=== PATIENT | male | born 1980 | race Caucasian/White ===

== ENCOUNTER 2024-11-27 15:15 | Emergency (ER) | payer SELFPAY ==
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
--- NOTE | 2024-11-27 15:52 | EDPHYS ---
Physician Documentation [facility] Name: Jose Eduardo Wan Age: 39 yrs Sex: Male : 01/10/1985 Arrival Date: 11/27/2024 Time: 15:15 Bed 15 Private MD: ED Physician Casimiro Hinojosa HPI: 11/27 15:54 This 39 yrs old Male presents to ER via Wheelchair with complaints of Leg ec2 Injury. 15:54 Patient arrives today for postoperative wound evaluation. States that several months ec2 ago he had significant reconstruction to the left lower extremity including grafts and instrumentation. States that today he had a wound and placed subsequently noted material protruding from it. Denies any fevers or chills, nausea or vomiting. States he has a baseline drainage which is unchanged for him. Denies any new pains or injuries or concerns with left lower extremity.. Historical: - Allergies: 15:36 Bees; cm10 - PMHx: 15:36 Hypertensive disorder; cm10 - PSHx: 15:36 Left Leg; cm10 - Immunization history:: Adult Immunizations up to date. - Infectious Disease History:: Denies. - Social history:: Smoking status: unknown. ROS: 15:55 Constitutional: as per hpi ec2 Exam: 15:55 Constitutional: GEN: NAD Head: atraumatic Eyes: EOMI Ears: External ears are ec2 normal. CV: regular rate LUNGS: no respiratory distress ABD: non-distended SKIN: Left lower extremity with small wound with penetrating foreign material noted,. Appears like suture material Vital Signs: 15:34 BP 147 / 76; Pulse 96; Resp 15; Temp 98; Pulse Ox 96% ; Weight 172.37 kg; Height 5 ft. cm10 9 in. ; Pain 6/10; 16:11 BP 147 / 61; Pulse 88; Resp 15; Pulse Ox 96% ; cm10 15:34 Body Mass Index 56.12 (172.37 kg, 175.26 cm) cm10 15:34 Pain Scale: Adult cm10 MDM: 15:25 Medical Screening Exam initiated ec2 15:55 Data reviewed: vital signs, nurses notes. ED course: Patient arrives today for ec2 evaluation of left lower extremity issues. Examination yields skin findings as above. Suspect wound dehiscence with protruding stitch, instructed patient he needs to return to [place] to have his wound reevaluated, patient without infectious appearing wounds, no erythema, no warmth, good range of motion, no evidence of cellulitis, osteomyelitis or abscess formation. Will discharge home, parents started on Bactrim given the instrumentation. Additionally considered osteomyelitis.. 11/27 15:54 Order name: Wound Care; Complete Time: 15:56 ec2 Administered Medications: 16:09 Drug: Trimethoprim-Sulfamethoxazole PO (160 mg-800 mg (DS) 1 tablet PO once Route: PO; 10 16:09 Follow up: Response: Medication administered at discharge. 10 Disposition Summary: 11/27/24 15:51 Discharge Ordered Condition: Stable ec2 Diagnosis - Post Operative Complication ec2 Followup: ec2 - With: Private Physician - When: - Reason: Re-evaluation by your physician Discharge Instructions: - Discharge Summary Sheet ec2 - Wound Dehiscence, [id number] ec2 Forms: - Medication Reconciliation Form ec2 - Antibiotic Education ec2 - Prescription Opioid Use ec2 - Patient Portal Instructions ec2 - Leadership Thank You Letter ec2 Prescriptions: - Bactrim DS 800-160 mg Oral Tablet - take 1 tablet ORAL route every 12 hours for 7 days; 14 tablet; Refills: 0, ec2 Product Selection Permitted Signatures: Ashtyn Acosta RN RN 10 Casimiro Hinojosa MD MD ec2 Corrections: (The following items were deleted from the chart) 15:36 15:36 Allergies: No Known Allergies; 10 10
[2024-11-27] MEDS ORDERED: SMZ./TMP. 800/160 MG TABLET ONE (16:04)
[2024-11-27 16:20] VITALS: TEMP 98; O2SAT 96
[2024-11-27 16:21] VITALS: BP 147/61
== END 2024-11-27 16:11 | disposition home or self-care (01) ==
LOC: EDBD → ER 15:15 → MERGE 15:15 → ER 16:11
DX: L76.82 Other postprocedural complications of skin and subcutaneous tissue (principal)
CPT/HCPCS: 99283